=== PATIENT | female | born 1965 | race Caucasian/White ===

== ENCOUNTER 2024-12-30 11:25 | Inpatient (IN) ==
[2024-12-30] MEDS ORDERED: ROCEPHIN VIAL 1 GRAM IV SCH (13:19)
--- NOTE | 2024-12-30 13:27 | EKG ---
Test Reason : R/O OK Blood Pressure : */* mmHG Vent. Rate : 92 BPM Atrial Rate : 92 BPM P-R Int : 136 ms QRS Dur : 74 ms QT Int : 342 ms P-R-T Axes : 61 36 19 degrees QTc Int : 422 ms Normal sinus rhythm Low voltage QRS Nonspecific ST abnormality Abnormal ECG No previous ECGs available Confirmed by Giorgio Rodriguez MD ([id number]) on 12/31/2024 7:26:23 AM Referred By: Confirmed By: Giorgio Rodriguez MD
[2024-12-30] MEDS: ROCEPHIN VIAL 1 GRAM 1 G in NS 100 ML IV 100 ML IV SCH (14:00)
[2024-12-30] MEDS: SOLU-Medrol 125 MG VIAL IVP SCH (14:00)
[2024-12-30] MEDS: NS 500 ML IV 500 ML IV ONE (14:00)
[2024-12-30 14:19] LABS: ABG ALLEN TEST POS; ABG BASE EXCESS 3.7 mmol/L (-2.0-2.0); ABG HCO3 27.7 mmol/L (22-26)
[2024-12-30 14:38] LABS: BASOPHILS # (AUTO) 0.1 X10^3/uL (0.0-0.1); BASOPHILS % (AUTO) 0.5 % (0.2-1.0); EOSINOPHILS % (AUTO) 0.3 % (0.9-2.9); HEMATOCRIT 31.2 % (36.0-47.0); HEMOGLOBIN 10.5 g/dL (12.0-16.0); LYMPHOCYTES # (AUTO) 1.4 X10^3/uL (1.3-2.9); LYMPHOCYTES % (AUTO) 12.8 % (21.0-51.0); MEAN CORPUSCULAR HEMOGLOBIN 28.2 pg (27.0-34.0); MEAN CORPUSCULAR HGB CONC 33.7 g/dL (33.0-35.0); MEAN CORPUSCULAR VOLUME 83.8 fL (80.0-100.0); MEAN PLATELET VOLUME 8.2 fL (7.4-11.0); MONOCYTES # (AUTO) 0.7 x10^3/uL (0.3-0.8); MONOCYTES % (AUTO) 6.3 % (0.0-13.0); NEUTROPHILS % (AUTO) 80.1 % (42.0-75.0); PLATELET COUNT 192 X10^3/uL (150.0-450.0); RED BLOOD COUNT 3.73 X10^6/uL (3.5-5.4); RED CELL DISTRIBUTION WIDTH 13.9 % (11.6-16.5); WHITE BLOOD COUNT 11.2 X10^3/uL (3.6-10.0)
[2024-12-30 14:55] LABS: ALANINE AMINOTRANSFERASE 53 Units/L (12-78); ALBUMIN 3.7 g/dL (3.4-5.0); ALKALINE PHOSPHATASE 102 Units/L (46-116); ASPARTATE AMINO TRANSFERASE 34 Units/L (15-37); BLOOD UREA NITROGEN 15 mg/dL (7-18); CALCIUM 9.1 mg/dL (8.5-10.1); CARBON DIOXIDE 29.5 mmol/L (21-32); CHLORIDE 104 mmol/L (98-107); CREATININE 1.13 mg/dL (0.55-1.02); GLUCOSE 81 mg/dL (65-99); POTASSIUM 3.7 mmol/L (3.5-5.1); SODIUM 141 mmol/L (136-145); TOTAL PROTEIN 6.7 g/dL (6.4-8.2); eGFR NON BLACK RACES 52 (>60)
[2024-12-30] MEDS: ZITHROMAX INJ 500 MG VIAL 500 MG in NS 250 ML IV 250 ML IV SCH (15:00)
[2024-12-30] MEDS: PROVENTIL NEB TX 0.083% 2.5MG/ 3ML NEB SCH (15:17)
[2024-12-30] MEDS: PULMICORT NEB TX 0.5 MG NEB SCH (15:18)
[2024-12-30] MEDS: TYLENOL 500 MG TAB EXTRA STRENGTH PO PRN (15:28)
[2024-12-30 15:57] LABS: BILIRUBIN,URINE NEGATIVE (NEGATIVE); BLOOD/HEMOGLOBIN,URINE NEGATIVE (NEGATIVE); GLUCOSE, URINE NEGATIVE (NEGATIVE); KETONES,URINE NEGATIVE (NEGATIVE); LEUKOCYTE ESTERASE ,URINE NEGATIVE (NEGATIVE); NITRITES,URINE NEGATIVE (NEGATIVE); PROTEIN,URINE 1+ (NEGATIVE); UROBILINOGEN,URINE NORMAL (NORMAL)
[2024-12-30 16:00] LABS: APPEARANCE,URINE CLEAR (CLEAR); COLOR,URINE YELLOW (YELLOW)
[2024-12-30 16:13] LABS: BACTERIA,URINE NEGATIVE /HPF (NEGATIVE); RBC,URINE 0-2 /HPF (0-3); SQUAMOUS EPITHELIAL CELL,UR RARE /HPF (NEGATIVE)
[2024-12-30] MEDS: DUONEB 0.5 MG/3 MG (3 mL) NEB SCH (16:38)
[2024-12-30] MEDS: TYLENOL 500 MG TAB EXTRA STRENGTH PO ONE (18:01)
[2024-12-30 18:17] VITALS: BMI 42.2
[2024-12-30] MEDS ORDERED: TORADOL 30 MG VIAL IVP PRN (18:49)
[2024-12-30] MEDS: TYLENOL #3 TAB (W/CODEINE) PO PRN (19:12)
[2024-12-30] MEDS: NORCO 5/325 MG TAB PO PRN (22:21)
[2024-12-31 06:02] LABS: BASOPHILS % (AUTO) 0.3 % (0.2-1.0); EOSINOPHILS % (AUTO) 0.1 % (0.9-2.9); HEMATOCRIT 31.8 % (36.0-47.0); HEMOGLOBIN 10.5 g/dL (12.0-16.0); LYMPHOCYTES # (AUTO) 0.6 X10^3/uL (1.3-2.9); MEAN CORPUSCULAR HEMOGLOBIN 27.8 pg (27.0-34.0); MEAN CORPUSCULAR HGB CONC 33.2 g/dL (33.0-35.0); MEAN CORPUSCULAR VOLUME 83.9 fL (80.0-100.0); MEAN PLATELET VOLUME 8.8 fL (7.4-11.0); MONOCYTES # (AUTO) 0.1 x10^3/uL (0.3-0.8); MONOCYTES % (AUTO) 1.5 % (0.0-13.0); NEUTROPHILS # (AUTO) 6.3 x10^3/uL (2.2-4.8); NEUTROPHILS % (AUTO) 90.1 % (42.0-75.0); PLATELET COUNT 179 X10^3/uL (150.0-450.0); RED BLOOD COUNT 3.79 X10^6/uL (3.5-5.4); RED CELL DISTRIBUTION WIDTH 13.5 % (11.6-16.5)
[2024-12-31 06:32] LABS: BAND NEUTROPHILS % 3 % (0-10); PLATELET MORPHOLOGY COMMENT NORMAL (NORMAL)
[2024-12-31 06:39] LABS: ALANINE AMINOTRANSFERASE 48 Units/L (12-78); ALBUMIN 3.5 g/dL (3.4-5.0); ALKALINE PHOSPHATASE 89 Units/L (46-116); ASPARTATE AMINO TRANSFERASE 24 Units/L (15-37); BLOOD UREA NITROGEN 14 mg/dL (7-18); CARBON DIOXIDE 27.7 mmol/L (21-32); CHLORIDE 105 mmol/L (98-107); COR NA(FOR HYPERGLY) 143 mmol/L (136-145); CREATININE 0.92 mg/dL (0.55-1.02); GLUCOSE 162 mg/dL (65-99); POTASSIUM 3.6 mmol/L (3.5-5.1); SODIUM 142 mmol/L (136-145); TOTAL PROTEIN 6.8 g/dL (6.4-8.2); eGFR NON BLACK RACES > 60 (>60)
--- NOTE | 2024-12-31 07:14 | RAD ---
EXAM:CHEST, PA/LAT ADULTHISTORY:SOB;COMPARISON:No relevant prior studies were available for comparison at the time of interpretation.TECHNIQUE:CHEST, PA/LAT ADULTFINDINGS:Chest:Lines and tubes: NoneMediastinum: Borderline cardiomegaly.Pulmonary vessels: There is pulmonary vascular congestion.Lung mcdermott: Patchy opacities are seenPleura: No effusion. No pneumothorax.Bones and soft tissues: No acute osseous or soft tissue abnormality.IMPRESSION:1. Findings suggest heart failureTHIS IS AN ELECTRONICALLY VERIFIED FINAL REPORT12/31/2024 7:09 AM - Electronically signed by Bong Boyer MD
[2024-12-31] MEDS: NS 100 ML IV 100 ML ONE ×2 (08:56→14:21)
[2024-12-31] MEDS: LOVENOX INJ 40 MG SYR SC SCH (08:56)
[2024-12-31] MEDS: LYRICA CAP 150 mg PO SCH (11:29)
[2024-12-31] MEDS: PATIENT'S HOME MEDICATION PO PRN (11:30)
[2024-12-31] MEDS: SINGULAIR TAB 10 MG PO SCH (11:30)
[2024-12-31] MEDS: PLAQUENIL PO SCH (11:30)
[2024-12-31] MEDS: FOLIC ACID TAB 1 MG PO SCH (11:30)
[2024-12-31] MEDS: COZAAR PO SCH (11:31)
[2024-12-31] MEDS: ZyrTEC TAB 10 MG PO SCH (11:31)
[2024-12-31] MEDS: TOPROL XL PO SCH (11:31)
[2024-12-31] MEDS ORDERED: PAXIL PO SCH (12:00)
[2024-12-31 13:50] LABS: RETICULOCYTE % 1.07 % (0.8-2.2)
[2024-12-31 14:21] LABS: IRON 24 ug/dL (50-175); TOTAL IRON BINDING CAPACITY 354 ug/dL (250-450)
[2024-12-31] MEDS: OMNIPAQUE 350 mg/mL 50 mL BTL 50 ML ONE (14:22)
[2024-12-31] MEDS: OMNIPAQUE 350 mg/mL 100 mL BTL 100 ML ONE (14:26)
--- NOTE | 2024-12-31 14:46 | CT ---
EXAM:CT PULMONARY ANGIOGRAM CHEST WITH CONTRAST (PE PROTOCOL)HISTORY:SOB; ORTHO, GB, COLONCOMPARISON:None.TECHNIQUE:Axial CT images were obtained through the chest after the intravenous administration of contrast. Coronal reformatted images were included. Maximum intensity projection (MIP) images were performed per pulmonary angiogram protocol.Informed written consent was obtained prior to contrast administration.All CT scans at this facility use dose modulation, iterative reconstruction, and/or weight based dosing when appropriate to reduce radiation dose to as low as reasonably achievable.FINDINGS:HEART AND PULMONARY ARTERIES: No evidence of right ventricular strain. No filling defects in the pulmonary arteries to suggest emboli.SUPPORT DEVICES: NoneLYMPH NODES: No pathologically enlarged nodes.LUNGS AND PLEURA: Lungs show nodular areas of airspace disease in the left upper lobe and superior segment left lower lobe as well as the right lung base. Superimposed areas of ground-glass alveolar opacities are noted. These may be related to pneumoniaAIRWAYS: NormalUPPER ABDOMEN: NormalBONES: NormalIMPRESSION:No evidence of pulmonary emboli. Nodular areas of airspace disease are detected most significantly in the left lower lobe and left upper lobe but also affecting the right lung base. Short interval follow-up post antibiotic therapy is suggested to ensure resolution.THIS IS AN ELECTRONICALLY VERIFIED FINAL REPORT12/31/2024 2:43 PM - Electronically signed by Duncan Thompson MD
--- NOTE | 2024-12-31 17:29 | DR.H&P ---
H&P History & Physical for Day of: H&P Date: 12/30/24 Chief Complaint Chief Complaint: GAURAV HOUGH History of Present Illness History of Present Illness: PT IS 59 WF, DIRECT ADMIT FROM DR [facility] [place] [facility] WITH GAURAV HOUGH WITH REPORTS OF SUDDEN ONSET ON SATURDAY. PT TESTED NEGATIVE FOR FLU AND COVID IN OFFICE ON SATURDAY. PT DOES HAVE PMH OF COPD, DENIES ASTHMA OR CAD. PT HAS HTN AND DM, LUPUS AND DRAKE. PT ADMITTED FOR T REATMENT AND EVALUATION OF ACUTE RESPIRATORY ILLNESS. Past Surgical History Surgical History: RESTAURANT TEAM MEMBER Surgery and Other Family History Family Medical History: Coronary Artery Disease Social History Does patient currently use any type of tobacco product: No Have you used tobacco products in the last 12 months: No Type of Tobacco Use: None Alcohol Use: None Medications Home Medications: Home Medications Medication Instructions Recorded Confirmed Type Mis 1 tab PO BID PRN Pain 12/30/24 12/30/24 History albuterol 90 mcg-budesonide 80 1 inh inhalation BID 12/30/24 12/30/24 History mcg/actuation HFA aerosol inhaler (Airsupra) alendronate 70 mg tablet 70 mg PO QWEEK 12/30/24 12/30/24 History cetirizine 10 mg tablet 10 mg PO DAILY 12/30/24 12/30/24 History ergocalciferol (vitamin D2) 1,250 1,250 mcg PO QWEEK 12/30/24 12/30/24 History mcg (50,000 unit) capsule fluticasone fur. 100 mcg-umeclid 1 inh inhalation DAILY 12/30/24 12/30/24 History 62.5 mcg-vilant 25 mcg inhalat.powder (Trelegy Ellipta) folic acid 1 mg tablet 1 mg PO DAILY 12/30/24 12/30/24 History furosemide 40 mg tablet 60 mg PO DAILY 12/30/24 12/30/24 History hydroxychloroquine 200 mg tablet 200 mg PO BID 12/30/24 12/30/24 History ipratropium 0.5 mg-albuterol 3 mg 3 ml inhalation BID 12/30/24 12/30/24 History (2.5 mg base)/3 mL nebulization soln losartan 25 mg tablet 25 mg PO DAILY 12/30/24 12/30/24 History meloxicam 15 mg tablet 15 mg PO QDAY 12/30/24 12/30/24 History methocarbamol 500 mg tablet 500 mg PO PRN PRN 12/30/24 12/30/24 History metoprolol succinate 25 mg 25 mg PO QDAY 12/30/24 12/30/24 History tablet,extended release 24 hr montelukast 10 mg tablet 10 mg PO QDAY 12/30/24 12/30/24 History omeprazole 40 mg capsule,delayed 40 mg PO QDAY 12/30/24 12/30/24 History release paroxetine HCl 40 mg tablet 40 mg PO DAILY 12/30/24 12/30/24 History pregabalin 150 mg capsule 150 mg PO BID 12/30/24 12/30/24 History spironolactone 50 mg tablet 50 mg PO DAILY 12/30/24 12/30/24 History tizanidine 4 mg capsule 4 mg PO HS 12/30/24 12/30/24 History Allergies Allergies Allergy/AdvReac Type Severity Reaction Status Date / Time lisinopril Allergy Verified 12/30/24 15:12 Labs 12/31/24 05:28 12/31/24 05:28 Labs: 12/30/24 15:00 Urine,Clean Catch Urine Culture - Preliminary Laboratory WBC 7.0 X10^3/uL (3.6-10.0) 12/31/24 05: RBC 3.79 X10^6/uL (3.5-5.4) 12/31/24 05:28 Hgb 10.5 g/dL (12.0-16.0) L 12/31/24 05:28 Hct 31.8 % (36.0-47.0) L 12/31/24 05:28 MCV 83.9 fL (80.0-100.0) 12/31/24 05:28 MCH 27.8 pg (27.0-34.0) 12/31/24 05:28 MCHC 33.2 g/dL (33.0-35.0) 12/31/24 05:28 RDW 13.5 % (11.6-16.5) 12/31/24 05:28 Plt Count 179 X10^3/uL (150.0-450.0) 12/31/24 05:28 Plt Count Comment Adequate (ADEQUATE) 12/31/24 05:28 MPV 8.8 fL (7.4-11.0) 12/31/24 05:28 Neut % (Auto) 90.1 % (42.0-75.0) H 12/31/24 05:28 Lymph % (Auto) 8.0 % (21.0-51.0) L 12/31/24 05:28 [place] % (Auto) 1.5 % (0.0-13.0) 12/31/24 05:28 Eos % (Auto) 0.1 % (0.9-2.9) L 12/31/24 05:28 Baso % (Auto) 0.3 % (0.2-1.0) 12/31/24 05:28 Neut # (Auto) 6.3 x10^3/uL (2.2-4.8) H 12/31/24 05:28 Lymph # (Auto) 0.6 X10^3/uL (1.3-2.9) L 12/31/24 05:28 [place] # (Auto) 0.1 x10^3/uL (0.3-0.8) L 12/31/24 05:28 Eos # (Auto) 0.0 x10^3/uL (0.0-0.2) 12/31/24 05:28 Baso # (Auto) 0.0 X10^3/uL (0.0-0.1) 12/31/24 05:28 Absolute Nucleated RBC 0.1 /100WBC 12/31/24 05:28 Total Counted 100 12/31/24 05:28 Neutrophils % (Manual) 94 % (39-76) H 12/31/24 05:28 Band Neutrophils % 3 % (0-10) 12/31/24 05:28 Lymphocytes % (Manual) 3 % (13-43) L 12/31/24 05:28 Plt Morphology Comment Normal (NORMAL) 12/31/24 05:28 RBC Morphology Normal (NORMAL) 12/31/24 05:28 Sample Site [place] 12/30/24 14:18 ABG pH 7.460 (7.35-7.45) H 12/30/24 14:18 ABG pCO2 39.0 mmHg (35.0-45.0) 12/30/24 14:18 ABG pO2 47.0 mmHg (80.0-100.0) L* 12/30/24 14:18 ABG HCO3 27.7 mmol/L (22-26) H 12/30/24 14:18 ABG O2 Saturation 85.0 % (90-100) L 12/30/24 14:18 ABG Base Excess 3.7 mmol/L (-2.0-2.0) H 12/30/24 14:18 Earl Test Pos 12/30/24 14:18 A-a Gradient 54.0 mmHg 12/30/24 14:18 FiO2 21.0 12/30/24 14:18 Blood Gas Comments Pankaj well ms 12/30/24 14:18 Sodium 142 mmol/L (136-145) 12/31/24 05:28 Corrected Sodium 143 mmol/L (136-145) 12/31/24 05:28 Potassium 3.6 mmol/L (3.5-5.1) 12/31/24 05:28 Chloride 105 mmol/L (98-107) 12/31/24 05:28 Carbon Dioxide 27.7 mmol/L (21-32) 12/31/24 05:28 BUN 14 mg/dL (7-18) 12/31/24 05:28 Creatinine 0.92 mg/dL (0.55-1.02) 12/31/24 05:28 Est GFR (MDRD) Af Amer > 60 (>60) 12/31/24 05:28 Est GFR (MDRD) Non-Af > 60 (>60) 12/31/24 05:28 Glucose 162 mg/dL (65-99) H 12/31/24 05:28 Calcium 9.0 mg/dL (8.5-10.1) 12/31/24 05:28 Corrected Calcium TNP 12/31/24 05:28 Magnesium 2.0 mg/dL (2.0-2.9) 12/31/24 05:28 Total Bilirubin 0.40 mg/dL (0.2-1.0) 12/31/24 05:28 AST 24 Units/L (15-37) 12/31/24 05:28 ALT 48 Units/L (12-78) 12/31/24 05:28 Alkaline Phosphatase 89 Units/L (46-116) 12/31/24 05:28 Troponin I High Sens 7.6 ng/L (4.0-60.0) 12/31/24 01:15 B-Natriuretic Peptide 159 pg/mL (0-79) H 12/30/24 14:28 Total Protein 6.8 g/dL (6.4-8.2) 12/31/24 05:28 Albumin 3.5 g/dL (3.4-5.0) 12/31/24 05:28 Globulin 3.3 g/dL (2.5-4.5) 12/31/24 05:28 Albumin/Globulin Ratio 1.1 Ratio (1.1-2.1) 12/31/24 05:28 Specimen Type Clean catch urine 12/30/24 15:00 Urine Color Yellow (YELLOW) 12/30/24 15:00 Urine Appearance Clear (CLEAR) 12/30/24 15:00 Urine pH 6.0 (5.0 - 8.0) 12/30/24 15:00 Ur Specific [place] 1.015 (1.000-1.030) 12/30/24 15:00 Urine Protein 1+ (NEGATIVE) 12/30/24 15:00 Urine Glucose (UA) Negative (NEGATIVE) 12/30/24 15:00 Urine Ketones Negative (NEGATIVE) 12/30/24 15:00 Urine Blood Negative (NEGATIVE) 12/30/24 15:00 Urine Nitrite Negative (NEGATIVE) 12/30/24 15:00 Urine Bilirubin Negative (NEGATIVE) 12/30/24 15:00 Urine Urobilinogen Normal (NORMAL) 12/30/24 15:00 Ur Leukocyte Esterase Negative (NEGATIVE) 12/30/24 15:00 Urine RBC 0-2 /HPF (0-3) 12/30/24 15:00 Urine WBC 0-2 /HPF (0-5) 12/30/24 15:00 Ur Squamous Epith Cells Rare /HPF (NEGATIVE) 12/30/24 15:00 Urine Bacteria Negative /HPF (NEGATIVE) 12/30/24 15:00 Ur Culture Indicated? No/not indicated 12/30/24 15:00 Review of Systems Constitutional: Weakness and Malaise Eyes: No Symptoms Reported ENT: Nose Discharge, Nose Congestion and Throat Pain Respiratory: Cough, Shortness of Breath, SOB with Excertion and Wheezing Cardiovascular: No Symptoms Reported Gastrointestinal: Nausea Genitourinary: No Symptoms Reported Musculoskeletal: Back Pain Skin: No Symptoms Reported Neurological: No Symptoms Reported Physical Exam Vital Signs: Vital Signs Temperature 97 F Temperature 97.9 F Pulse Rate [Left Brachial] 89 Pulse Rate [Left Brachial] 83 Pulse Rate 70 Pulse Rate 75 Respiratory Rate 18 Respiratory Rate 19 Respiratory Rate 19 Respiratory Rate 18 Blood Pressure [Left Arm] 137/61 Blood Pressure [Left Arm] 167/72 O2 Sat by Pulse Oximetry 94 O2 Sat by Pulse Oximetry 93 O2 Sat by Pulse Oximetry 93 O2 Sat by Pulse Oximetry 95 Oriented: Normal Eyes: Normal Ear: Normal Nose: Normal and Discharge; negative Injected, Blood or Other Throat: Red Respiratory: Wheezes Throughout Cardiovascular: Tachycardia : Normal Auscultation: Bowel Sounds: Normal Palpation: Normal Tenderness: RLQ, Epigastric and Mild Skin: Normal Musculoskeletal: Back:Lumbar Psychiatric: Normal Mood Description: Calm Affect: Normal Speech Pattern: Clear and Appropriate Assessment/Plan (1) Acute bronchitis: Status: Acute Plan: ADMIT, ABG ON ADMISSION CXR, SUPPLEMENTAL O2 IV ATBX THERAPY, IV STEROIDS ROBITUSSIN, DUO NEBS SPUTUM CULTURE, VERIFY HOME MEDICATIONS REPEAT AM LABS, BP AND BS CONTROL (2) SOB (shortness of breath): Status: Acute (3) Lupus: Status: Acute (4) COPD (chronic obstructive pulmonary disease): Status: Acute
[2024-12-31] MEDS: K-DUR TAB 20 MEQ PO ONE (17:54)
[2024-12-31] MEDS: LASIX IVP ONE (17:54)
[2024-12-31] MEDS: PAXIL PO SCH (21:05)
[2024-12-31] MEDS: PROTONIX INJ 40 MG VIAL IVP SCH (21:07)
[2024-12-31] MEDS: ZANAFLEX PO SCH (21:27)
[2025-01-01 04:46] LABS: ABG BASE EXCESS 6.1 mmol/L (-2.0-2.0)
[2025-01-01 04:47] LABS: ABG ALLEN TEST POS; ABG HCO3 31.2 mmol/L (22-26)
[2025-01-01 06:02] LABS: BASOPHILS % (AUTO) 0.3 % (0.2-1.0); HEMATOCRIT 29.9 % (36.0-47.0); HEMOGLOBIN 10.1 g/dL (12.0-16.0); LYMPHOCYTES # (AUTO) 0.7 X10^3/uL (1.3-2.9); LYMPHOCYTES % (AUTO) 7.4 % (21.0-51.0); MEAN CORPUSCULAR HEMOGLOBIN 28.2 pg (27.0-34.0); MEAN CORPUSCULAR HGB CONC 33.7 g/dL (33.0-35.0); MEAN CORPUSCULAR VOLUME 83.6 fL (80.0-100.0); MONOCYTES # (AUTO) 0.3 x10^3/uL (0.3-0.8); MONOCYTES % (AUTO) 3.9 % (0.0-13.0); NEUTROPHILS # (AUTO) 7.9 x10^3/uL (2.2-4.8); NEUTROPHILS % (AUTO) 88.4 % (42.0-75.0); PLATELET COUNT 202 X10^3/uL (150.0-450.0); RED BLOOD COUNT 3.57 X10^6/uL (3.5-5.4); RED CELL DISTRIBUTION WIDTH 13.6 % (11.6-16.5); WHITE BLOOD COUNT 8.9 X10^3/uL (3.6-10.0)
[2025-01-01 06:13] LABS: ALANINE AMINOTRANSFERASE 39 Units/L (12-78); ALBUMIN 3.5 g/dL (3.4-5.0); ALKALINE PHOSPHATASE 76 Units/L (46-116); ASPARTATE AMINO TRANSFERASE 13 Units/L (15-37); BLOOD UREA NITROGEN 21 mg/dL (7-18); CALCIUM 8.9 mg/dL (8.5-10.1); CARBON DIOXIDE 28.4 mmol/L (21-32); CHLORIDE 103 mmol/L (98-107); COR NA(FOR HYPERGLY) 143 mmol/L (136-145); GLUCOSE 165 mg/dL (65-99); POTASSIUM 3.4 mmol/L (3.5-5.1); SODIUM 141 mmol/L (136-145); TOTAL PROTEIN 6.7 g/dL (6.4-8.2); eGFR NON BLACK RACES 54 (>60)
[2025-01-01] MEDS ORDERED: CONSULT PHARMACY - POTASSIUM & MAGNESIUM XX SCH (07:00)
--- NOTE | 2025-01-01 08:03 | RAD ---
EXAM: CHEST, PA/LAT ADULT HISTORY: BRONCHITIS; LUPUS, HTN, ASTHMA SX: BOWEL RESECTION, ALCOHOL AND DRUG COUNSELOR, ROTATOR CUFF SURG COMPARISON: No relevant prior studies were available for comparison at the time of interpretation. TECHNIQUE: CHEST, PA/LAT ADULT FINDINGS: Chest: Lines and tubes: None Mediastinum: Cardiomegaly. Pulmonary vessels: No pulmonary vascular congestion. Lung mcdermott: No suspicious airspace opacity. Pleura: No effusion. No pneumothorax. Bones and soft tissues: No acute osseous or soft tissue abnormality. IMPRESSION: 1. No acute cardiopulmonary abnormality THIS IS AN ELECTRONICALLY VERIFIED FINAL REPORT 01/01/2025 8:00 AM - Electronically signed by Bong Boyer MD
[2025-01-01] MEDS: K-DUR TAB 20 MEQ PO SCH (08:20)
--- NOTE | 2025-01-01 09:57 | NOTE.SOAP ---
Soap Note Note for Day of Date of Exam: 01/01/25 Subjective Data Subjective Data: Patient seen for daily rounds with at bedside. Feeling better overall. Still short of breath and with a productive cough. CTA showing nodular opacities in a couple locations in the right lung and in the left lower lobe. ABG with hypercapnia and hypoxemia. Also reporting chronic right lower abdominal pain. Has had a colon resection in the past. Has been being worked up as an outpatient with no resolution. Also reports lingering left foot pain following fractures of the navicular bone. She is up and down a lot at her job. Having some difficulty ambulating due to the foot pain. Objective Data Objective Data: Well-developed, well-nourished, morbidly obese female in no acute distress. She is wearing her nasal cannula, EOMI, head NCAT, trachea midline. Heart regular rate and rhythm. Lungs diminished in the bilateral bases with good air movement otherwise. Belly is soft and nontender with bowel sounds present. Minimal tenderness of the arch of the left foot with no deformities. Assessment Assessment: 1. Community-acquired pneumonia, bilateral. Acute. 2. Acute hypoxemic and hypercapnic respiratory failures. 3. Chronic left foot pain secondary to navicular fracture. 4. Chronically, intermittent right lower quadrant pain. Plan Plan: Continue incentive spirometry, ambulation about the room, O2 supplementation, deep breathing, steroids, nebs, and Zithromax. Will plan on getting a CT of the left foot along with a CT with contrast of the abdomen/pelvis today and tomorrow.
--- NOTE | 2025-01-01 10:15 | RAD ---
EXAM:ACUTE ABDOMEN SERI ESHISTORY:abdominal pain;COMPARISON:12/30/2024TECHNIQUE:AP chest; AP abdomen supine and uprightFINDINGS:Unremarkable cardiac silhouette. No focal consolidation, pleural effusion, or visible pneumothorax.No abnormally distended bowel loops. No significant colonic stool burden. No free peritoneal air. Right upper quadrant metallic surgical clips.IMPRESSION:Normal bowel gas pattern. No free peritoneal air.THIS IS AN ELECTRONICALLY VERIFIED FINAL REPORT01/01/2025 10:12 AM - Electronically signed by Duncan Marcus MD
--- NOTE | 2025-01-01 14:12 | CT ---
EXAM:CT ABDOMEN AND PELVIS WITH CONTRASTHISTORY:RLQ pain; pt c/o reoccuring RLQ pain with nauseaCOMPARISON:None available.TECHNIQUE:Axial CT images were obtained through the abdomen and pelvis after the intravenous administration of contrast. Coronal and sagittal reformatted images were included.Informed written consent was obtained prior to contrast administration.All CT scans at this facility use dose modulation, iterative reconstruction, and/or weight based dosing when appropriate to reduce radiation dose to as low as reasonably achievable.FINDINGS:Clear lung bases.Unremarkable liver. Prior cholecystectomy. No biliary dilatation. Spleen, pancreas, adrenals, and kidneys are unremarkable. Mild aortoiliac atherosclerosis without aneurysm no lymphadenopathy.No abnormally distended or focally thickened bowel loops. Normal right lower quadrant appendix. No free peritoneal air or fluid. Unremarkable urinary bladder. Absent uterus. No free pelvic fluid.No acute osseous findings. Mild lumbar spondylosis.IMPRESSION:No acute findings in the abdomen or pelvis. Normal appendix.THIS IS AN ELECTRONICALLY VERIFIED FINAL REPORT01/01/2025 2:09 PM - Electronically signed by Duncan Marcus MD
[2025-01-01 19:14] LABS: CRYPTOSPORIDIUM PARVUM ANTIGEN NEGATIVE (NEGATIVE); GIARDIA LAMBLIA ANTIGEN NEGATIVE (NEGATIVE)
[2025-01-02] MEDS: ROBITUSSIN DM PO PRN (03:49)
[2025-01-02 05:16] LABS: HEMATOCRIT 29.2 % (36.0-47.0); HEMOGLOBIN 9.7 g/dL (12.0-16.0); MEAN CORPUSCULAR HEMOGLOBIN 27.9 pg (27.0-34.0); WHITE BLOOD COUNT 7.8 X10^3/uL (3.6-10.0)
[2025-01-02 05:21] LABS: BASOPHILS % (AUTO) 0.5 % (0.2-1.0); LYMPHOCYTES # (AUTO) 0.6 X10^3/uL (1.3-2.9); LYMPHOCYTES % (AUTO) 7.2 % (21.0-51.0); MEAN CORPUSCULAR HGB CONC 33.4 g/dL (33.0-35.0); MEAN CORPUSCULAR VOLUME 83.6 fL (80.0-100.0); MEAN PLATELET VOLUME 8.8 fL (7.4-11.0); MONOCYTES # (AUTO) 0.2 x10^3/uL (0.3-0.8); MONOCYTES % (AUTO) 3.1 % (0.0-13.0); NEUTROPHILS # (AUTO) 6.9 x10^3/uL (2.2-4.8); NEUTROPHILS % (AUTO) 89.2 % (42.0-75.0); PLATELET COUNT 211 X10^3/uL (150.0-450.0); RED BLOOD COUNT 3.49 X10^6/uL (3.5-5.4); RED CELL DISTRIBUTION WIDTH 13.8 % (11.6-16.5)
[2025-01-02 05:32] LABS: ALANINE AMINOTRANSFERASE 36 Units/L (12-78); ALBUMIN 3.2 g/dL (3.4-5.0); ALKALINE PHOSPHATASE 69 Units/L (46-116); ASPARTATE AMINO TRANSFERASE 13 Units/L (15-37); BLOOD UREA NITROGEN 21 mg/dL (7-18); CALCIUM 8.4 mg/dL (8.5-10.1); CARBON DIOXIDE 27.3 mmol/L (21-32); CHLORIDE 106 mmol/L (98-107); COR NA(FOR HYPERGLY) 144 mmol/L (136-145); CREATININE 1.06 mg/dL (0.55-1.02); GLUCOSE 171 mg/dL (65-99); POTASSIUM 3.9 mmol/L (3.5-5.1); SODIUM 142 mmol/L (136-145); TOTAL PROTEIN 6.3 g/dL (6.4-8.2); eGFR NON BLACK RACES 56 (>60)
--- NOTE | 2025-01-02 11:27 | PCM.PROG ---
Progress Note Progress Note for Day of Date of Exam: 01/02/25 Subjective Subjective: Patient seen at bedside, no acute events overnight. She is currently admitted for pneumonia. She is on 2 L oxygen. She remains on IV antibiotics and steroids. She has a history of chronic constipation and diarrhea. She was having some abdominal pain yesterday which is chronic. CT abdomen pelvis was done which did not show any acute abnormality. Chest x-ray is also negative. Echo was also done, final reading pending. She has history of chronic left foot pain and has not been able to ambulate due to her fracture last year. She has been seeing podiatry. She has had worsening pain since she has been in the hospital and not able to ambulate much. She has plates and screws in the left foot. Lab/imaging reviewed: -WBC 7.8 hemoglobin 9.7 potassium 3.9 creatinine 1.06 glucose 171 -Echo final report pending -CTAP reviewed -Chest x-ray reviewed -Stool studies negative Plan: Wean O2 as tolerated. Continue IV antibiotics and Solu-Medrol. Continue bronchodilators, cough medicine and IS. Encouraged ambulation as tolerated. Replace electrolytes as per protocol. Follow-up final echo report. Continue home medications. Continue pain control. Patient reports worsening left foot pain and would like to get imaging since she does have a lot of hardware. Will order CT for Saturday. Monitor a.m. labs and imaging. Past Medical Family Social History Allergies: Allergies lisinopril Allergy (Verified 12/30/24 15:12) Vital Signs and I&O's Vital Signs: Vital Signs Temperature 97.4 F Temperature 97.0 F Pulse Rate [Left Brachial] 77 Pulse Rate [Left Brachial] 76 Pulse Rate 68 Respiratory Rate 22 Respiratory Rate 20 Blood Pressure [Left Arm] 140/63 Blood Pressure [Left Arm] 122/58 O2 Sat by Pulse Oximetry 95 O2 Sat by Pulse Oximetry 97 O2 Sat by Pulse Oximetry 96 O2 Sat by Pulse Oximetry 97 Intake and Output: Intake & Output 12/30/24 12/31/24 01/01/25 01/02/25 23:59 23:59 23:59 23:59 Intake Total 260 / 260 2130 / 2130 1195 / 1195 20 / 20 Balance 260 / 260 2130 / 2130 1195 / 1195 20 Physical Exam Oriented: Normal Eyes: Normal Ear: Normal Throat: Red Respiratory: Generalized, Wheezes and Rhonchi Cardiovascular: Normal Auscultation: Bowel Sounds: Normal Palpation: Normal Tenderness: Epigastric and Mild Skin: Normal Musculoskeletal: Left, Foot and Back:Lumbar Psychiatric: Normal Mood Description: Calm Affect: Normal Speech Pattern: Clear and Appropriate Laboratory and Diagnostics 01/02/25 04:45 01/02/25 04:45 Labs: 01/01/25 17:49 Stool Stool Culture - Preliminary 01/01/25 17:49 Stool - Final 12/30/24 20:30 Sputum - Expectorated Sputum Sputum Culture - Final 12/30/24 15:00 Urine,Clean Catch Urine Culture - Final Laboratory WBC 7.8 X10^3/uL (3.6-10.0) 01/02/25 04:45 RBC 3.49 X10^6/uL (3.5-5.4) L 01/02/25 04:45 Hgb 9.7 g/dL (12.0-16.0) L 01/02/25 04:45 Hct 29.2 % (36.0-47.0) L 01/02/25 04:45 MCV 83.6 fL (80.0-100.0) 01/02/25 04:45 MCH 27.9 pg (27.0-34.0) 01/02/25 04:45 MCHC 33.4 g/dL (33.0-35.0) 01/02/25 04:45 RDW 13.8 % (11.6-16.5) 01/02/25 04:45 Plt Count 211 X10^3/uL (150.0-450.0) 01/02/25 04:45 Plt Count Comment Adequate (ADEQUATE) 12/31/24 05:28 MPV 8.8 fL (7.4-11.0) 01/02/25 04:45 Neut % (Auto) 89.2 % (42.0-75.0) H 01/02/25 04:45 Lymph % (Auto) 7.2 % (21.0-51.0) L 01/02/25 04:45 [place] % (Auto) 3.1 % (0.0-13.0) 01/02/25 04:45 Eos % (Auto) 0.0 % (0.9-2.9) L 01/02/25 04:45 Baso % (Auto) 0.5 % (0.2-1.0) 01/02/25 04:45 Neut # (Auto) 6.9 x10^3/uL (2.2-4.8) H 01/02/25 04:45 Lymph # (Auto) 0.6 X10^3/uL (1.3-2.9) L 01/02/25 04:45 [place] # (Auto) 0.2 x10^3/uL (0.3-0.8) L 01/02/25 04:45 Eos # (Auto) 0.0 x10^3/uL (0.0-0.2) 01/02/25 04:45 Baso # (Auto) 0.0 X10^3/uL (0.0-0.1) 01/02/25 04:45 Absolute Nucleated RBC 0.1 /100WBC 01/02/25 04:45 Total Counted 100 12/31/24 05:28 Neutrophils % (Manual) 94 % (39-76) H 12/31/24 05:28 Band Neutrophils % 3 % (0-10) 12/31/24 05:28 Lymphocytes % (Manual) 3 % (13-43) L 12/31/24 05:28 Plt Morphology Comment Normal (NORMAL) 12/31/24 05:28 RBC Morphology Normal (NORMAL) 12/31/24 05:28 Absolute Retic 0.0402 10^6/uL 12/31/24 05:28 Percent Retic 1.07 % (0.8-2.2) 12/31/24 05:28 Sample Site Lr 01/01/25 04:40 ABG pH 7.440 (7.35-7.45) 01/01/25 04:40 ABG pCO2 46.0 mmHg (35.0-45.0) H 01/01/25 04:40 ABG pO2 50.0 mmHg (80.0-100.0) L 01/01/25 04:40 ABG HCO3 31.2 mmol/L (22-26) H* 01/01/25 04:40 ABG O2 Saturation 86.0 % (90-100) L 01/01/25 04:40 ABG Base Excess 6.1 mmol/L (-2.0-2.0) H 01/01/25 04:40 Earl Test Pos 01/01/25 04:40 A-a Gradient 42.0 mmHg 01/01/25 04:40 FiO2 21.0 01/01/25 04:40 Blood Gas Comments Pankaj well ae 01/01/25 04:40 Sodium 142 mmol/L (136-145) 01/02/25 04:45 Corrected Sodium 144 mmol/L (136-145) 01/02/25 04:45 Potassium 3.9 mmol/L (3.5-5.1) 01/02/25 04:45 Chloride 106 mmol/L (98-107) 01/02/25 04:45 Carbon Dioxide 27.3 mmol/L (21-32) 01/02/25 04:45 BUN 21 mg/dL (7-18) H 01/02/25 04:45 Creatinine 1.06 mg/dL (0.55-1.02) H 01/02/25 04:45 Est GFR (MDRD) Af Amer > 60 (>60) 01/02/25 04:45 Est GFR (MDRD) Non-Af 56 (>60) L 01/02/25 04:45 Glucose 171 mg/dL (65-99) H 01/02/25 04:45 Calcium 8.4 mg/dL (8.5-10.1) L 01/02/25 04:45 Corrected Calcium 9.0 mg/dL (8.5-10.1) 01/02/25 04:45 Magnesium 2.0 mg/dL (2.0-2.9) 01/02/25 04:45 Iron 24 ug/dL (50-175) L 12/31/24 05:28 TIBC 354 ug/dL (250-450) 12/31/24 05:28 Transferrin 264 mg/dL (202-364) 12/31/24 05:28 Ferritin 103 ng/mL (8-252) 12/31/24 05:28 Total Bilirubin 0.30 mg/dL (0.2-1.0) 01/02/25 04:45 AST 13 Units/L (15-37) L 01/02/25 04:45 ALT 36 Units/L (12-78) 01/02/25 04:45 Alkaline Phosphatase 69 Units/L (46-116) 01/02/25 04:45 Troponin I High Sens 7.6 ng/L (4.0-60.0) 12/31/24 01:15 B-Natriuretic Peptide 107 pg/mL (0-79) H 01/01/25 05:19 Total Protein 6.3 g/dL (6.4-8.2) L 01/02/25 04:45 Albumin 3.2 g/dL (3.4-5.0) L 01/02/25 04:45 Globulin 3.1 g/dL (2.5-4.5) 01/02/25 04:45 Albumin/Globulin Ratio 1.0 Ratio (1.1-2.1) L 01/02/25 04:45 Vitamin B12 648 pg/mL (193-986) 12/31/24 05:28 Folate > 20.0 ng/mL (>8.6) 12/31/24 05:28 Specimen Type Clean catch urine 12/30/24 15:00 Urine Color Yellow (YELLOW) 12/30/24 15:00 Urine Appearance Clear (CLEAR) 12/30/24 15:00 Urine pH 6.0 (5.0 - 8.0) 12/30/24 15:00 Ur Specific [place] 1.015 (1.000-1.030) 12/30/24 15:00 Urine Protein 1+ (NEGATIVE) 12/30/24 15:00 Urine Glucose (UA) Negative (NEGATIVE) 12/30/24 15:00 Urine Ketones Negative (NEGATIVE) 12/30/24 15:00 Urine Blood Negative (NEGATIVE) 12/30/24 15:00 Urine Nitrite Negative (NEGATIVE) 12/30/24 15:00 Urine Bilirubin Negative (NEGATIVE) 12/30/24 15:00 Urine Urobilinogen Normal (NORMAL) 12/30/24 15:00 Ur Leukocyte Esterase Negative (NEGATIVE) 12/30/24 15:00 Urine RBC 0-2 /HPF (0-3) 12/30/24 15:00 Urine WBC 0-2 /HPF (0-5) 12/30/24 15:00 Ur Squamous Epith Cells Rare /HPF (NEGATIVE) 12/30/24 15:00 Urine Bacteria Negative /HPF (NEGATIVE) 12/30/24 15:00 Ur Culture Indicated? No/not indicated 12/30/24 15:00 Stl Occult Blood (IFOB) Negative (NEGATIVE) 01/01/25 17:49 Stl C. diff Tox B Gene Negative (NEGATIVE) 01/01/25 17:49 Stl C. diff [id number] Presumptive negative (NEGATIVE) 01/01/25 17:49 Stool H. pylori Ag Negative (NEGATIVE) 01/01/25 17:49 SARS-CoV-2 (PCR) Negative (NEGATIVE) 12/31/24 16:30 Cryptosporid parvum Ag Negative (NEGATIVE) 01/01/25 17:49 Giardia lamblia Ag Negative (NEGATIVE) 01/01/25 17:49 Influenza Type A (PCR) Negative (NEGATIVE) 12/31/24 16:30 Influenza Type B (PCR) Negative (NEGATIVE) 12/31/24 16:30 RSV (PCR) Negative (NEGATIVE) 12/31/24 16:30 Resp Viral Panel (PCR) See scanned report 12/30/24 13:10 Plan (1) Acute respiratory failure: Status: Acute Qualifiers: Respiratory failure complication: hypoxia Qualified Code(s): J96.01 - Acute respiratory failure with hypoxia (2) Acute bronchitis: Status: Acute Qualifiers: Bronchitis organism: unspecified organism Qualified Code(s): J20.9 - Acute bronchitis, unspecified (3) SOB (shortness of breath): Status: Acute (4) Lupus: Status: Chronic (5) COPD (chronic obstructive pulmonary disease): Status: Chronic Qualifiers: COPD type: unspecified COPD Qualified Code(s): J44.9 - Chronic obstructive pulmonary disease, unspecified (6) Diarrhea: Status: Chronic Qualifiers: Diarrhea type: unspecified type Qualified Code(s): R19.7 - Diarrhea, unspecified (7) Chronic pain in left foot: Status: Chronic (8) Anemia: Status: Chronic Qualifiers: Anemia type: unspecified type Qualified Code(s): D64.9 - Anemia, unspecified
[2025-01-02] MEDS: TYLENOL 325 MG TAB PO PRN (20:57)
[2025-01-03 06:11] LABS: HEMOGLOBIN 9.9 g/dL (12.0-16.0); LYMPHOCYTES # (AUTO) 0.8 X10^3/uL (1.3-2.9); LYMPHOCYTES % (AUTO) 9.6 % (21.0-51.0); MEAN CORPUSCULAR VOLUME 84.4 fL (80.0-100.0); RED CELL DISTRIBUTION WIDTH 13.9 % (11.6-16.5)
[2025-01-03 06:21] LABS: BASOPHILS # (AUTO) 0.1 X10^3/uL (0.0-0.1); BASOPHILS % (AUTO) 0.8 % (0.2-1.0); HEMATOCRIT 29.9 % (36.0-47.0); MEAN CORPUSCULAR HGB CONC 33.1 g/dL (33.0-35.0); MEAN PLATELET VOLUME 8.8 fL (7.4-11.0); MONOCYTES # (AUTO) 0.5 x10^3/uL (0.3-0.8); MONOCYTES % (AUTO) 6.3 % (0.0-13.0); NEUTROPHILS % (AUTO) 83.3 % (42.0-75.0); PLATELET COUNT 231 X10^3/uL (150.0-450.0); RED BLOOD COUNT 3.54 X10^6/uL (3.5-5.4); WHITE BLOOD COUNT 8.4 X10^3/uL (3.6-10.0)
[2025-01-03 06:25] LABS: ALANINE AMINOTRANSFERASE 33 Units/L (12-78); ALBUMIN 3.4 g/dL (3.4-5.0); ALKALINE PHOSPHATASE 64 Units/L (46-116); ASPARTATE AMINO TRANSFERASE 16 Units/L (15-37); BLOOD UREA NITROGEN 21 mg/dL (7-18); CALCIUM 8.6 mg/dL (8.5-10.1); CARBON DIOXIDE 30.1 mmol/L (21-32); CHLORIDE 105 mmol/L (98-107); COR NA(FOR HYPERGLY) 142 mmol/L (136-145); CREATININE 1.05 mg/dL (0.55-1.02); GLUCOSE 118 mg/dL (65-99); MAGNESIUM 2.2 mg/dL (2.0-2.9); POTASSIUM 4.1 mmol/L (3.5-5.1); SODIUM 142 mmol/L (136-145); TOTAL PROTEIN 6.3 g/dL (6.4-8.2); eGFR NON BLACK RACES 57 (>60)
[2025-01-03 06:49] LABS: BAND NEUTROPHILS % 2 % (0-10)
[2025-01-03 06:51] LABS: PLATELET MORPHOLOGY COMMENT NORMAL (NORMAL)
--- NOTE | 2025-01-03 11:04 | PCM.PROG ---
Progress Note Progress Note for Day of Date of Exam: 01/03/25 Subjective Subjective: Patient seen at bedside, no acute events overnight. She is currently admitted for pneumonia. She is on 2 L oxygen. She is feeling slightly better. She has been ambulating in the room. She remains on IV antibiotics and steroids. She did lose her IV access yesterday and was not able to get another access. Lab/imaging reviewed: -WBC 8.4 hemoglobin 9.9 potassium 4.1 creatinine 1.05 glucose 118 -Echo Pending -CTAP reviewed -Chest x-ray reviewed -Stool studies negative Plan: Wean O2 as tolerated. Since patient has no IV access, will switch to IM Rocephin and p.o. azithromycin. Switch to p.o. prednisone. Continue bronchodilators, cough medicine and IS. Encouraged ambulation as tolerated. Replace electrolytes as per protocol. Follow-up final echo report. Continue ho me medications. Continue pain control. Patient reports worsening left foot pain and would like to get imaging since she does have a lot of hardware. CT left foot ordered. Monitor a.m. labs and imaging. Past Medical Family Social History Allergies: Allergies lisinopril Allergy (Verified 12/30/24 15:12) Vital Signs and I&O's Vital Signs: Vital Signs Temperature 97.1 F Temperature 98.0 F Pulse Rate [Left Brachial] 75 Pulse Rate [Left Brachial] 67 Pulse Rate 80 Respiratory Rate 20 Respiratory Rate 18 Blood Pressure [Left Arm] 143/65 Blood Pressure [Left Arm] 145/63 O2 Sat by Pulse Oximetry 93 O2 Sat by Pulse Oximetry 95 O2 Sat by Pulse Oximetry 99 Intake and Output: Intake & Output 12/31/24 01/01/25 01/02/25 01/03/25 23:59 23:59 23:59 23:59 Intake Total 0 / 0 1195 / 1195 900 / 900 0 / 0 Balance 2130 / 2130 1195 / 1195 900 / 900 0 / 0 Physical Exam Oriented: Normal Eyes: Normal Ear: Normal Nose: Normal Throat: Red Respiratory: Generalized, Wheezes and Rhonchi Cardiovascular: Normal Auscultation: Bowel Sounds: Normal Palpation: Normal Tenderness: Epigastric and Mild Skin: Normal Musculoskeletal: Left, Foot and Back:Lumbar Psychiatric: Normal Mood Description: Calm Affect: Normal Speech Pattern: Clear and Appropriate Laboratory and Diagnostics 01/03/25 05:50 01/03/25 05:50 Labs: 01/01/25 17:49 Stool Stool Culture - Final 01/01/25 17:49 Stool - Final 12/30/24 20:30 Sputum - Expectorated Sputum Sputum Culture - Final 12/30/24 15:00 Urine,Clean Catch Urine Culture - Final Laboratory WBC 8.4 X10^3/uL (3.6-10.0) 01/03/25 05:50 RBC 3.54 X10^6/uL (3.5-5.4) 01/03/25 05:50 Hgb 9.9 g/dL (12.0-16.0) L 01/03/25 05:50 Hct 29.9 % (36.0-47.0) L 01/03/25 05:50 MCV 84.4 fL (80.0-100.0) 01/03/25 05:50 MCH 28.0 pg (27.0-34.0) 01/03/25 05:50 MCHC 33.1 g/dL (33.0-35.0) 01/03/25 05:50 RDW 13.9 % (11.6-16.5) 01/03/25 05:50 Plt Count 231 X10^3/uL (150.0-450.0) 01/03/25 05:50 Plt Count Comment Adequate (ADEQUATE) 01/03/25 05:50 MPV 8.8 fL (7.4-11.0) 01/03/25 05:50 Neut % (Auto) 83.3 % (42.0-75.0) H 01/03/25 05:50 Lymph % (Auto) 9.6 % (21.0-51.0) L 01/03/25 05:50 [place] % (Auto) 6.3 % (0.0-13.0) 01/03/25 05:50 Eos % (Auto) 0.0 % (0.9-2.9) L 01/03/25 05:50 Baso % (Auto) 0.8 % (0.2-1.0) 01/03/25 05:50 Neut # (Auto) 7.0 x10^3/uL (2.2-4.8) H 01/03/25 05:50 Lymph # (Auto) 0.8 X10^3/uL (1.3-2.9) L 01/03/25 05:50 [place] # (Auto) 0.5 x10^3/uL (0.3-0.8) 01/03/25 05:50 Eos # (Auto) 0.0 x10^3/uL (0.0-0.2) 01/03/25 05:50 Baso # (Auto) 0.1 X10^3/uL (0.0-0.1) 01/03/25 05:50 Absolute Nucleated RBC 0.1 /100WBC 01/03/25 05:50 Total Counted 100 01/03/25 05:50 Neutrophils % (Manual) 81 % (39-76) H 01/03/25 05:50 Band Neutrophils % 2 % (0-10) 01/03/25 05:50 Lymphocytes % (Manual) 11 % (13-43) L 01/03/25 05:50 Monocytes % (Manual) 6 % (4-9) 01/03/25 05:50 Plt Morphology Comment Normal (NORMAL) 01/03/25 05:50 RBC Morphology Normal (NORMAL) 01/03/25 05:50 Absolute Retic 0.0402 10^6/uL 12/31/24 05:28 Percent Retic 1.07 % (0.8-2.2) 12/31/24 05:28 Sample Site Lr 01/01/25 04:40 ABG pH 7.440 (7.35-7.45) 01/01/25 04:40 ABG pCO2 46.0 mmHg (35.0-45.0) H 01/01/25 04:40 ABG pO2 50.0 mmHg (80.0-100.0) L 01/01/25 04:40 ABG HCO3 31.2 mmol/L (22-26) H* 01/01/25 04:40 ABG O2 Saturation 86.0 % (90-100) L 01/01/25 04:40 ABG Base Excess 6.1 mmol/L (-2.0-2.0) H 01/01/25 04:40 Earl Test Pos 01/01/25 04:40 A-a Gradient 42.0 mmHg 01/01/25 04:40 FiO2 21.0 01/01/25 04:40 Blood Gas Comments Pankaj well ae 01/01/25 04:40 Sodium 142 mmol/L (136-145) 01/03/25 05:50 Corrected Sodium 142 mmol/L (136-145) 01/03/25 05:50 Potassium 4.1 mmol/L (3.5-5.1) 01/03/25 05:50 Chloride 105 mmol/L (98-107) 01/03/25 05:50 Carbon Dioxide 30.1 mmol/L (21-32) 01/03/25 05:50 BUN 21 mg/dL (7-18) H 01/03/25 05:50 Creatinine 1.05 mg/dL (0.55-1.02) H 01/03/25 05:50 Est GFR (MDRD) Af Amer > 60 (>60) 01/03/25 05:50 Est GFR (MDRD) Non-Af 57 (>60) L 01/03/25 05:50 Glucose 118 mg/dL (65-99) H 01/03/25 05:50 Calcium 8.6 mg/dL (8.5-10.1) 01/03/25 05:50 Corrected Calcium TNP 01/03/25 05:50 Magnesium 2.2 mg/dL (2.0-2.9) 01/03/25 05:50 Iron 24 ug/dL (50-175) L 12/31/24 05:28 TIBC 354 ug/dL (250-450) 12/31/24 05:28 Transferrin 264 mg/dL (202-364) 12/31/24 05:28 Ferritin 103 ng/mL (8-252) 12/31/24 05:28 Total Bilirubin 0.20 mg/dL (0.2-1.0) 01/03/25 05:50 AST 16 Units/L (15-37) 01/03/25 05:50 ALT 33 Units/L (12-78) 01/03/25 05:50 Alkaline Phosphatase 64 Units/L (46-116) 01/03/25 05:50 Troponin I High Sens 7.6 ng/L (4.0-60.0) 12/31/24 01:15 B-Natriuretic Peptide 107 pg/mL (0-79) H 01/01/25 05:19 Total Protein 6.3 g/dL (6.4-8.2) L 01/03/25 05:50 Albumin 3.4 g/dL (3.4-5.0) 01/03/25 05:50 Globulin 2.9 g/dL (2.5-4.5) 01/03/25 05:50 Albumin/Globulin Ratio 1.2 Ratio (1.1-2.1) 01/03/25 05:50 Vitamin B12 648 pg/mL (193-986) 12/31/24 05:28 Folate > 20.0 ng/mL (>8.6) 12/31/24 05:28 Specimen Type Clean catch urine 12/30/24 15:00 Urine Color Yellow (YELLOW) 12/30/24 15:00 Urine Appearance Clear (CLEAR) 12/30/24 15:00 Urine pH 6.0 (5.0 - 8.0) 12/30/24 15:00 Ur Specific [place] 1.015 (1.000-1.030) 12/30/24 15:00 Urine Protein 1+ (NEGATIVE) 12/30/24 15:00 Urine Glucose (UA) Negative (NEGATIVE) 12/30/24 15:00 Urine Ketones Negative (NEGATIVE) 12/30/24 15:00 Urine Blood Negative (NEGATIVE) 12/30/24 15:00 Urine Nitrite Negative (NEGATIVE) 12/30/24 15:00 Urine Bilirubin Negative (NEGATIVE) 12/30/24 15:00 Urine Urobilinogen Normal (NORMAL) 12/30/24 15:00 Ur Leukocyte Esterase Negative (NEGATIVE) 12/30/24 15:00 Urine RBC 0-2 /HPF (0-3) 12/30/24 15:00 Urine WBC 0-2 /HPF (0-5) 12/30/24 15:00 Ur Squamous Epith Cells Rare /HPF (NEGATIVE) 12/30/24 15:00 Urine Bacteria Negative /HPF (NEGATIVE) 12/30/24 15:00 Ur Culture Indicated? No/not indicated 12/30/24 15:00 Stl Occult Blood (IFOB) Negative (NEGATIVE) 01/01/25 17:49 Stl C. diff Tox B Gene Negative (NEGATIVE) 01/01/25 17:49 Stl C. diff [id number] Presumptive negative (NEGATIVE) 01/01/25 17:49 Stool H. pylori Ag Negative (NEGATIVE) 01/01/25 17:49 SARS-CoV-2 (PCR) Negative (NEGATIVE) 12/31/24 16:30 Cryptosporid parvum Ag Negative (NEGATIVE) 01/01/25 17:49 Giardia lamblia Ag Negative (NEGATIVE) 01/01/25 17:49 Influenza Type A (PCR) Negative (NEGATIVE) 12/31/24 16:30 Influenza Type B (PCR) Negative (NEGATIVE) 12/31/24 16:30 RSV (PCR) Negative (NEGATIVE) 12/31/24 16:30 Resp Viral Panel (PCR) See scanned report 12/30/24 13:10 Plan (1) Acute respiratory failure: Status: Acute Qualifiers: Respiratory failure complication: hypoxia Qualified Code(s): J96.01 - Acute respiratory failure with hypoxia (2) Acute bronchitis: Status: Acute Qualifiers: Bronchitis organism: unspecified organism Qualified Code(s): J20.9 - Acute bronchitis, unspecified (3) SOB (shortness of breath): Status: Acute (4) Lupus: Status: Chronic (5) COPD (chronic obstructive pulmonary disease): Status: Chronic Qualifiers: COPD type: unspecified COPD Qualified Code(s): J44.9 - Chronic obstructive pulmonary disease, unspecified (6) Diarrhea: Status: Chronic Qualifiers: Diarrhea type: unspecified type Qualified Code(s): R19.7 - Diarrhea, unspecified (7) Chronic pain in left foot: Status: Chronic (8) Anemia: Status: Chronic Qualifiers: Anemia type: unspecified type Qualified Code(s): D64.9 - Anemia, unspe cified
[2025-01-03] MEDS: PREDNISONE TAB 20 MG PO SCH (11:47)
[2025-01-03] MEDS: ZITHROMAX TAB 250 MG PO SCH (11:47)
[2025-01-03] MEDS: XYLOCAINE 1 % (PLAIN) ONE (11:48)
[2025-01-03] MEDS: ROCEPHIN VIAL 1 GRAM IM SCH (11:48)
[2025-01-03] MEDS ORDERED: ROCEPHIN VIAL 1 GRAM 1 G in NS 100 ML IV 100 ML IM SCH (12:00)
[2025-01-03] MEDS: OMNIPAQUE 350 mg/mL 100 mL BTL 100 ML ONE (19:18)
[2025-01-03] MEDS: READI-CAT 2 ONE (19:18)
[2025-01-03] MEDS ORDERED: PROTONIX TAB 40 MG PO SCH (22:00)
[2025-01-03] MEDS: PROTONIX TAB 40 MG PO SCH (22:42)
[2025-01-04 05:46] LABS: BASOPHILS % (AUTO) 0.3 % (0.2-1.0); EOSINOPHILS % (AUTO) 0.1 % (0.9-2.9); HEMATOCRIT 30.2 % (36.0-47.0); LYMPHOCYTES # (AUTO) 1.4 X10^3/uL (1.3-2.9); LYMPHOCYTES % (AUTO) 16.3 % (21.0-51.0); MEAN CORPUSCULAR HEMOGLOBIN 27.8 pg (27.0-34.0); MEAN CORPUSCULAR HGB CONC 33.1 g/dL (33.0-35.0); MEAN CORPUSCULAR VOLUME 84.2 fL (80.0-100.0); MEAN PLATELET VOLUME 8.1 fL (7.4-11.0); MONOCYTES # (AUTO) 0.7 x10^3/uL (0.3-0.8); MONOCYTES % (AUTO) 7.8 % (0.0-13.0); NEUTROPHILS # (AUTO) 6.3 x10^3/uL (2.2-4.8); NEUTROPHILS % (AUTO) 75.5 % (42.0-75.0); PLATELET COUNT 225 X10^3/uL (150.0-450.0); RED BLOOD COUNT 3.59 X10^6/uL (3.5-5.4); RED CELL DISTRIBUTION WIDTH 13.7 % (11.6-16.5); WHITE BLOOD COUNT 8.3 X10^3/uL (3.6-10.0)
[2025-01-04 06:17] LABS: PLATELET MORPHOLOGY COMMENT NORMAL (NORMAL)
[2025-01-04 06:19] LABS: ALANINE AMINOTRANSFERASE 38 Units/L (12-78); ALBUMIN 3.2 g/dL (3.4-5.0); ALKALINE PHOSPHATASE 60 Units/L (46-116); ASPARTATE AMINO TRANSFERASE 13 Units/L (15-37); BLOOD UREA NITROGEN 19 mg/dL (7-18); CALCIUM 8.7 mg/dL (8.5-10.1); CHLORIDE 106 mmol/L (98-107); COR CA(FOR HYPOALB) 9.3 mg/dL (8.5-10.1); CREATININE 1.05 mg/dL (0.55-1.02); GLUCOSE 90 mg/dL (65-99); POTASSIUM 3.9 mmol/L (3.5-5.1); SODIUM 143 mmol/L (136-145); TOTAL PROTEIN 6.1 g/dL (6.4-8.2); eGFR NON BLACK RACES 57 (>60)
[2025-01-04 08:32] LABS: ABG ALLEN TEST POS; ABG BASE EXCESS 3.1 mmol/L (-2.0-2.0); ABG HCO3 28.5 mmol/L (22-26)
[2025-01-04 12:30] LABS: ABG ALLEN TEST POS; ABG BASE EXCESS 2.3 mmol/L (-2.0-2.0); ABG HCO3 27.8 mmol/L (22-26)
[2025-01-04] MEDS: OMNIPAQUE 350 mg/mL 100 mL BTL 100 ML ONE (15:20)
--- NOTE | 2025-01-04 16:16 | RAD ---
EXAM: CHEST, PA/LAT ADULT HISTORY: pneumonia, chf; COMPARISON: 01/01/2025 TECHNIQUE: PA and lateral FINDINGS: Stable cardiac silhouette. No focal consolidation, pleural effusion, or pneumothorax. IMPRESSION: No acute cardiopulmonary findings. THIS IS AN ELECTRONICALLY VERIFIED FINAL REPORT 01/04/2025 4:13 PM - Electronically signed by Duncan Marcus MD
--- NOTE | 2025-01-04 16:20 | CT ---
EXAM:CT LEFT FOOT WITHOUT IV CONTRASTHISTORY:worsening left foot pain, hx of fracture; orthoCOMPARISON:None availableTECHNIQUE:Axial CT images were obtained through the left foot without IV contrast. Coronal and sagittal reformatted images were included.All CT scans at this facility use dose modulation, iterative reconstruction, and/or weight based dosing when appropriate to reduce radiation dose to as low as reasonably achievable.FINDINGS:Chronic unhealed navicular fracture through the midportion with corticated margins. The medial navicular is sclerotic with multiple subchondral sclerosis and mild fragmentation. Talar head chronic appearing subchondral fracture with subchondral cyst formation and sclerosis. Mild calcaneocuboid and midfoot osteoarthritis.Distal tibia and fibula fixation hardware is intact with chronic healed trimalleolar ankle fracture. No large ankle effusion.Mild diffuse muscle atrophy. 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 Adjacent talar head subchondral fracture appears subacute to chronic with additional area of suspected osteonecrosis.THIS IS AN ELECTRONICALLY VERIFIED FINAL REPORT01/04/2025 4:17 PM - Electronically signed by Duncan Marcus MD
--- NOTE | 2025-01-04 17:40 | PCM.PROG ---
Progress Note Progress Note for Day of Date of Exam: 01/04/25 Subjective Subjective: PT IS 59 WF, ADMITTED WITH HYPOXIA AND PNEUMONIA. PT IS CURRENTLY ON IV ATBX AND SUPPLEMENTAL O2. PT HAS BEEN ON IV SOLU MEDROL SINCE ADMISSION WITH REPEAT ABG IMPROVING. PT HAS A CT OF ABD/PELVIS WITHOUT ACUTE FINDINGS. PT HAS HX OF LEFT FOOT FRACTURE AND HAS A CT ORDERED FOR TODAY. PLAN TO CONSULT RESP FOR WEANING OF O2 AND ASSESS FOR THE NEED OF SUPPLEMENTAL O2 IN THE HOME. Past Medical Family Social History Allergies: Allergies lisinopril Allergy (Verified 12/30/24 15:12) Vital Signs and I&O's Vital Signs: Vital Signs Temperature 97.6 F Temperature 97.7 F Pulse Rate [Left Brachial] 72 Pulse Rate [Left Brachial] 70 Respiratory Rate 18 Respiratory Rate 18 Blood Pressure [Left Arm] 178/70 Blood Pressure [Left Arm] 142/64 O2 Sat by Pulse Oximetry 92 O2 Sat by Pulse Oximetry 97 Intake and Output: Intake & Output 01/02/25 01/03/25 01/04/25 01/05/25 11:59 11:59 11:59 11:59 Intake Total 950 / 950 880 / 880 1620 / 1620 800 / 800 Balance 950 / 950 880 / 880 1620 / 1620 800 / 800 Physical Exam Oriented: Normal Eyes: Normal Ear: Normal Nose: Normal Throat: Red Respiratory: Generalized, Wheezes and Rhonchi Cardiovascular: Normal : Normal Auscultation: Bowel Sounds: Normal Tenderness: Epigastric and Mild Skin: Normal Musculoskeletal: Left, Foot and Back:Lumbar Psychiatric: Normal Mood Description: Calm Affect: Normal Speech Pattern: Clear and Appropriate Laboratory and Diagnostics 01/04/25 05:26 01/04/25 05:26 Labs: 12/30/24 20:30 Sputum - Expectorated Sputum Sputum Culture - Final 12/30/24 20:30 Sputum - Expectorated Sputum - Final 01/01/25 17:49 Stool Stool Culture - Final 01/01/25 17:49 Stool - Final 12/30/24 15:00 Urine,Clean Catch Urine Culture - Final Laboratory WBC 8.3 X10^3/uL (3.6-10.0) 01/04/25 05:26 RBC 3.59 X10^6/uL (3.5-5.4) 01/04/25 05:26 Hgb 10.0 g/dL (12.0-16.0) L 01/04/25 05:26 Hct 30.2 % (36.0-47.0) L 01/04/25 05:26 MCV 84.2 fL (80.0-100.0) 01/04/25 05:26 MCH 27.8 pg (27.0-34.0) 01/04/25 05:26 MCHC 33.1 g/dL (33.0-35.0) 01/04/25 05:26 RDW 13.7 % (11.6-16.5) 01/04/25 05:26 Plt Count 225 X10^3/uL (150.0-450.0) 01/04/25 05:26 Plt Count Comment Adequate (ADEQUATE) 01/04/25 05:26 MPV 8.1 fL (7.4-11.0) 01/04/25 05:26 Neut % (Auto) 75.5 % (42.0-75.0) H 01/04/25 05:26 Lymph % (Auto) 16.3 % (21.0-51.0) L 01/04/25 05:26 [place] % (Auto) 7.8 % (0.0-13.0) 01/04/25 05:26 Eos % (Auto) 0.1 % (0.9-2.9) L 01/04/25 05:26 Baso % (Auto) 0.3 % (0.2-1.0) 01/04/25 05:26 Neut # (Auto) 6.3 x10^3/uL (2.2-4.8) H 01/04/25 05:26 Lymph # (Auto) 1.4 X10^3/uL (1.3-2.9) 01/04/25 05:26 [place] # (Auto) 0.7 x10^3/uL (0.3-0.8) 01/04/25 05:26 Eos # (Auto) 0.0 x10^3/uL (0.0-0.2) 01/04/25 05:26 Baso # (Auto) 0.0 X10^3/uL (0.0-0.1) 01/04/25 05:26 Absolute Nucleated RBC 0.1 /100WBC 01/04/25 05:26 Total Counted 100 01/04/25 05:26 Neutrophils % (Manual) 82 % (39-76) H 01/04/25 05:26 Band Neutrophils % 2 % (0-10) 01/03/25 05:50 Lymphocytes % (Manual) 12 % (13-43) L 01/04/25 05:26 Monocytes % (Manual) 6 % (4-9) 01/04/25 05:26 Plt Morphology Comment Normal (NORMAL) 01/04/25 05:26 RBC Morphology Normal (NORMAL) 01/04/25 05:26 Absolute Retic 0.0402 10^6/uL 12/31/24 05:28 Percent Retic 1.07 % (0.8-2.2) 12/31/24 05:28 Sample Site Rrad 01/04/25 12:29 ABG pH 7.390 (7.35-7.45) 01/04/25 12:29 ABG pCO2 46.0 mmHg (35.0-45.0) H 01/04/25 12:29 ABG pO2 63.0 mmHg (80.0-100.0) L 01/04/25 12:29 ABG HCO3 27.8 mmol/L (22-26) H 01/04/25 12:29 ABG O2 Saturation 91.0 % (90-100) 01/04/25 12:29 ABG Base Excess 2.3 mmol/L (-2.0-2.0) H 01/04/25 12:29 Earl Test Pos 01/04/25 12:29 A-a Gradient 29.0 mmHg 01/04/25 12:29 FiO2 21.0 01/04/25 12:29 Blood Gas Comments Pankaj well ms 01/04/25 12:29 Sodium 143 mmol/L (136-145) 01/04/25 05:26 Corrected Sodium TNP 01/04/25 05:26 Potassium 3.9 mmol/L (3.5-5.1) 01/04/25 05:26 Chloride 106 mmol/L (98-107) 01/04/25 05:26 Carbon Dioxide 26.0 mmol/L (21-32) 01/04/25 05:26 BUN 19 mg/dL (7-18) H 01/04/25 05:26 Creatinine 1.05 mg/dL (0.55-1.02) H 01/04/25 05:26 Est GFR (MDRD) Af Amer > 60 (>60) 01/04/25 05:26 Est GFR (MDRD) Non-Af 57 (>60) L 01/04/25 05:26 Glucose 90 mg/dL (65-99) 01/04/25 05:26 Calcium 8.7 mg/dL (8.5-10.1) 01/04/25 05:26 Corrected Calcium 9.3 mg/dL (8.5-10.1) 01/04/25 05:26 Magnesium 2.2 mg/dL (2.0-2.9) 01/03/25 05:50 Iron 24 ug/dL (50-175) L 12/31/24 05:28 TIBC 354 ug/dL (250-450) 12/31/24 05:28 Transferrin 264 mg/dL (202-364) 12/31/24 05:28 Ferritin 103 ng/mL (8-252) 12/31/24 05:28 Total Bilirubin 0.20 mg/dL (0.2-1.0) 01/04/25 05:26 AST 13 Units/L (15-37) L 01/04/25 05:26 ALT 38 Units/L (12-78) 01/04/25 05:26 Alkaline Phosphatase 60 Units/L (46-116) 01/04/25 05:26 Troponin I High Sens 7.6 ng/L (4.0-60.0) 12/31/24 01:15 B-Natriuretic Peptide 107 pg/mL (0-79) H 01/01/25 05:19 Total Protein 6.1 g/dL (6.4-8.2) L 01/04/25 05:26 Albumin 3.2 g/dL (3.4-5.0) L 01/04/25 05:26 Globulin 2.9 g/dL (2.5-4.5) 01/04/25 05:26 Albumin/Globulin Ratio 1.1 Ratio (1.1-2.1) 01/04/25 05:26 Vitamin B12 648 pg/mL (193-986) 12/31/24 05:28 Folate > 20.0 ng/mL (>8.6) 12/31/24 05:28 Specimen Type Clean catch urine 12/30/24 15:00 Urine Color Yellow (YELLOW) 12/30/24 15:00 Urine Appearance Clear (CLEAR) 12/30/24 15:00 Urine pH 6.0 (5.0 - 8.0) 12/30/24 15:00 Ur Specific [place] 1.015 (1.000-1.030) 12/30/24 15:00 Urine Protein 1+ (NEGATIVE) 12/30/24 15:00 Urine Glucose (UA) Negative (NEGATIVE) 12/30/24 15:00 Urine Ketones Negative (NEGATIVE) 12/30/24 15:00 Urine Blood Negative (NEGATIVE) 12/30/24 15:00 Urine Nitrite Negative (NEGATIVE) 12/30/24 15:00 Urine Bilirubin Negative (NEGATIVE) 12/30/24 15:00 Urine Urobilinogen Normal (NORMAL) 12/30/24 15:00 Ur Leukocyte Esterase Negative (NEGATIVE) 12/30/24 15:00 Urine RBC 0-2 /HPF (0-3) 12/30/24 15:00 Urine WBC 0-2 /HPF (0-5) 12/30/24 15:00 Ur Squamous Epith Cells Rare /HPF (NEGATIVE) 12/30/24 15:00 Urine Bacteria Negative /HPF (NEGATIVE) 12/30/24 15:00 Ur Culture Indicated? No/not indicated 12/30/24 15:00 Stl Occult Blood (IFOB) Negative (NEGATIVE) 01/01/25 17:49 Stl C. diff Tox B Gene Negative (NEGATIVE) 01/01/25 17:49 Stl C. diff [id number] Presumptive negative (NEGATIVE) 01/01/25 17:49 Stool H. pylori Ag Negative (NEGATIVE) 01/01/25 17:49 SARS-CoV-2 (PCR) Negative (NEGATIVE) 12/31/24 16:30 Cryptosporid parvum Ag Negative (NEGATIVE) 01/01/25 17:49 Giardia lamblia Ag Negative (NEGATIVE) 01/01/25 17:49 Influenza Type A (PCR) Negative (NEGATIVE) 12/31/24 16:30 Influenza Type B (PCR) Negative (NEGATIVE) 12/31/24 16:30 RSV (PCR) Negative (NEGATIVE) 12/31/24 16:30 Resp Viral Panel (PCR) See scanned report 12/30/24 13:10 Plan (1) Acute respiratory failure: Status: Acute Qualifiers: Respiratory failure complication: hypoxia Qualified Code(s): J96.01 - Acute respiratory failure with hypoxia Plan: CONTINUE WITH SUPPLEMENTAL O2 IV ATBX REPEAT CXR, ASSESS FOR SUPPLEMENTAL O2 BP CONTROL CT LLE ORDERED FOR THIS AM (2) Acute bronchitis: Status: Acute Qualifiers: Bronchitis organism: unspecified organism Qualified Code(s): J20.9 - Acute bronchitis, unspecified (3) SOB (shortness of breath): Status: Acute (4) Lupus: Status: Chronic (5) COPD (chronic obstructive pulmonary disease): Status: Chronic Qualifiers: COPD type: unspecified COPD Qualified Code(s): J44.9 - Chronic obstructive pulmonary disease, unspecified (6) Diarrhea: Status: Chronic Qualifiers: Diarrhea type: unspecified type Qualified Code(s): R19.7 - Diarrhea, unspecified (7) Chronic pain in left foot: Status: Chronic (8) Anemia: Status: Chronic Qualifiers: Anemia type: unspecified type Qualified Code(s): D64.9 - Anemia, unspecified
[2025-01-04 23:50] VITALS: RESP 18
[2025-01-05 06:16] LABS: LYMPHOCYTES # (AUTO) 1.7 X10^3/uL (1.3-2.9)
[2025-01-05 06:18] LABS: BASOPHILS % (AUTO) 0.4 % (0.2-1.0); EOSINOPHILS % (AUTO) 0.3 % (0.9-2.9); HEMATOCRIT 30.3 % (36.0-47.0); LYMPHOCYTES % (AUTO) 18.3 % (21.0-51.0); MEAN CORPUSCULAR HEMOGLOBIN 27.3 pg (27.0-34.0); MEAN CORPUSCULAR VOLUME 82.7 fL (80.0-100.0); MEAN PLATELET VOLUME 8.3 fL (7.4-11.0); MONOCYTES # (AUTO) 0.8 x10^3/uL (0.3-0.8); MONOCYTES % (AUTO) 8.2 % (0.0-13.0); NEUTROPHILS # (AUTO) 6.9 x10^3/uL (2.2-4.8); NEUTROPHILS % (AUTO) 72.8 % (42.0-75.0); PLATELET COUNT 192 X10^3/uL (150.0-450.0); RED BLOOD COUNT 3.66 X10^6/uL (3.5-5.4); RED CELL DISTRIBUTION WIDTH 14.2 % (11.6-16.5); WHITE BLOOD COUNT 9.5 X10^3/uL (3.6-10.0)
[2025-01-05 06:35] LABS: ALANINE AMINOTRANSFERASE 40 Units/L (12-78); ALKALINE PHOSPHATASE 60 Units/L (46-116); ASPARTATE AMINO TRANSFERASE 20 Units/L (15-37); BLOOD UREA NITROGEN 17 mg/dL (7-18); CALCIUM 8.7 mg/dL (8.5-10.1); CARBON DIOXIDE 28.7 mmol/L (21-32); CHLORIDE 107 mmol/L (98-107); COR CA(FOR HYPOALB) 9.5 mg/dL (8.5-10.1); CREATININE 1.08 mg/dL (0.55-1.02); GLUCOSE 85 mg/dL (65-99); POTASSIUM 3.8 mmol/L (3.5-5.1); SODIUM 144 mmol/L (136-145); TOTAL PROTEIN 5.7 g/dL (6.4-8.2); eGFR NON BLACK RACES 55 (>60)
[2025-01-05] MEDS ORDERED: CONSULT PHARMACY - POTASSIUM & MAGNESIUM XX SCH (07:00)
[2025-01-05 07:06] LABS: PLATELET MORPHOLOGY COMMENT NORMAL (NORMAL)
[2025-01-05] MEDS: K-DUR TAB 20 MEQ PO SCH (09:11)
[2025-01-05] MEDS: MAGIC MOUTHWASH (Orig. Formula) MT ONE (11:58)
[2025-01-05 12:37] VITALS: BP 140/65; PULSE 82; TEMP 97.4; O2SAT 94
== END 2025-01-05 13:50 | disposition home or self-care (01) | DRG 193 ==
LOC: U → MED/SURG 12:49
PROVIDERS: ADMIT Internal Medicine; ATTEND Internal Medicine
DX: R53.1 Weakness; J44.9 Chronic obstructive pulmonary disease, unspecified; R19.7 Diarrhea, unspecified; G47.33 Obstructive sleep apnea (adult) (pediatric); J96.01 Acute respiratory failure with hypoxia; Z03.818 Encounter for observation for suspected exposure to other biological agents ruled out; S92.255 Nondisplaced fracture of navicular [scaphoid] of left foot; B97.89 Other viral agents as the cause of diseases classified elsewhere; M79.672 Pain in left foot; M32.9 Systemic lupus erythematosus, unspecified; J96.02 Acute respiratory failure with hypercapnia; R10.31 Right lower quadrant pain; R93.1 Abnormal findings on diagnostic imaging of heart and coronary circulation; I10 Essential (primary) hypertension; J18.8 Other pneumonia, unspecified organism; F41.8 Other specified anxiety disorders; D64.9 Anemia, unspecified; E11.65 Type 2 diabetes mellitus with hyperglycemia